=== PATIENT | male | born 1985 | race Caucasian/White ===

== ENCOUNTER 2018-10-13 15:00 | Emergency (ER) | payer BC, OTHER ==
[~2018-10-13] VITALS: Ht 182.9 cm; Wt 130.2 kg
--- NOTE | 2018-10-13 15:15 | ED General ---
General Chief Complaint: sent for abnormal work labs Stated Complaint: ABNORMAL LAB RESULTS Source of Information: Patient Exam Limitations: No Limitations History of Present Illness Date Seen by Provider: Oct 13, 2018 Time Seen by Provider: 15:15 HR was called by lab here with employment labs for abnormal labs, he was told to come here for further eval. Reports his glucose was high. He has checked his glucose when at his previous job a few years ago and it was high then, but did not have insurance at the time and did not follow up with anyone. He has had some polydipsia, tingling in feet greater than the hands. No polyurea or polyphagia. Allergies and Home Medications Allergies Coded Allergies: Penicillins (Verified Allergy, Unknown, 10/13/18) lisinopril (Verified Allergy, Unknown, rash, 10/13/18) Patient Home Medication List Home Medication List Reviewed: Yes Review of Systems Review of Systems Constitutional: No chills, No fever, No weakness EENTM: No blurred vision, No double vision Respiratory: No cough, No short of breath Cardiovascular: No chest pain, No edema Gastrointestinal: No abdominal pain, No nausea, No vomiting Genitourinary: No dysuria, No hematuria, No nocturia Musculoskeletal: No joint pain, No muscle pain Skin: No lesions, No rash Psychiatric/Neurological: Tingling Past Dgucder-Gxxfps-Urgawh Hx Past Med/Social Hx: Reviewed Nursing Past Med/Soc Hx Physical Exam Vital Signs Vital Signs - First Documented 10/13/18 15:07 Temp 98.6 Pulse 113 Resp 18 B/P (MAP) 144/109 (121) Pulse Ox 95 Capillary Refill : Height, Weight, BMI Height: '" Weight: lbs. oz. kg; BMI Method: General Appearance: No Apparent Distress, WD/WN HEENT: PERRL/EOMI, Normal ENT Inspection Neck: Full Range of Motion, Normal Inspection Respiratory: Chest Non Tender, Lungs Clear, Normal Breath Sounds, No Accessory Muscle Use, No Respiratory Distress Cardiovascular: Regular Rate, Rhythm, No Edema, No Gallop, No JVD, No Murmur, Normal Peripheral Pulses Gastrointestinal: Normal Bowel Sounds, No Organomegaly, No Pulsatile Mass, Non Tender, Soft Extremity: Normal Capillary Refill, Normal Inspection Neurologic/Psychiatric: Alert, Oriented x3, No Motor/Sensory Deficits, Normal Mood/Affect Skin: Normal Color, Warm/Dry Progress/Results/Core Measures Suspected Sepsis SIRS Temperature: Pulse: Respiratory Rate: Blood Pressure / Mean: Results/Orders Lab Results Laboratory Tests Test 10/13/18 15:30 10/13/18 15:40 Range/Units Urine Color YELLOW Urine Clarity CLEAR Urine pH 5.5 5-9 Urine Specific [place] <1.005 1.016-1.022 Urine Protein NEGATIVE NEGATIVE Urine Glucose (UA) 3+ H NEGATIVE Urine Ketones NEGATIVE NEGATIVE Urine Nitrite NEGATIVE NEGATIVE Urine Bilirubin NEGATIVE NEGATIVE Urine Urobilinogen 0.2 NORMAL MG/DL Urine Leukocyte Esterase NEGATIVE NEGATIVE Urine RBC (Auto) NEGATIVE NEGATIVE Urine RBC NONE /HPF Urine WBC NONE /HPF Urine Squamous Epithelial Cells RARE /HPF Urine Crystals NONE /LPF Urine Bacteria NONE /HPF Urine Casts NONE /LPF Urine Mucus NEGATIVE /LPF Urine Culture Indicated NO Glucometer 499 *H 70-110 MG/DL My Orders Orders - NAHUM SAEZ MD Accucheck Stat ONCE (10/13/18 15:27) Urinalysis (10/13/18 15:27) Vital Signs/I&O 10/13/18 15:07 Temp 98.6 Pulse 113 Resp 18 B/P (MAP) 144/109 (121) Pulse Ox 95 Capillary Refill : Progress Note : Progress Note Labs from his HR reviewed: TSH 2.15 CMP Na 134, K 4.4, Cl 95, CO2 27, BUN 8, [employer] 0.6, Gluc 423, Ca 9.6, T bili 0.5, Alk Phos 79, AST 19, ALT 32 T Chol 234, HDL 34, LDL unable to calculate, Trig 479 CBC pending Departure Impression Primary Impression: Hypoglycemia associated with diabetes Disposition: 01 HOME, SELF-CARE Condition: Stable Departure-Patient Inst. Decision time for Depature: 16:13 Referrals: NO,LOCAL PHYSICIAN (PCP) Primary Care Physician [facility] [place] Patient Instructions: Diabetes Type 2 (DC) NAHUM SAEZ MD Oct 13, 2018 15:15
[2018-10-13 15:55] LABS: BILIRUBIN,URINE NEGATIVE (NEGATIVE); CLARITY,URINE CLEAR; COLOR,URINE YELLOW; GLUCOSE, URINE (UA) 3+ (NEGATIVE); KETONES,URINE NEGATIVE (NEGATIVE); LEUKOCYTE ESTERASE ,URINE NEGATIVE (NEGATIVE); NITRITE,URINE NEGATIVE (NEGATIVE); PH,URINE 5.5 (5-9); PROTEIN,URINE NEGATIVE (NEGATIVE); SQUAMOUS EPITHELIAL CELL,UR RARE /HPF; UROBILINOGEN,URINE 0.2 MG/DL (NORMAL)
--- NOTE | 2018-10-13 16:09 | NUR ---
Winsome from urgent care just called about patient. She stated sorry it took so long for her to call, they had a ambulance issue. She stated that the patient did not know about why he was getting sent over to the emergency room. She stated that this morning his fasting blood sugar was 423.
[2018-10-13 16:28] VITALS: BP 157/118
== END 2018-10-13 16:30 | disposition home or self-care (01) ==
LOC: EDUNIT# 15:00 → ER FS 15:01
DX: E11.649 Type 2 diabetes mellitus with hypoglycemia without coma (principal); Z88.0 Allergy status to penicillin; Z88.8 Allergy status to other drugs, medicaments and biological substances
CPT/HCPCS: 81000; 82962